=== PATIENT | female | born 1970 | race Caucasian/White ===

== ENCOUNTER 2020-09-17 14:58 | Outpatient (CLI) | payer OTHER, SELFPAY ==
--- NOTE | 2020-09-17 17:00 | WPDPFTINT ---
PFT Procedure Performed PFT Procedure Performed Plethysmography (Lung Vol) Diffusing Cap (DLCO) Flow Vol Loop Spirometry w/o Bronchodil PFT Interpretation This is a pulmonary function test with spirometry, plethysmography and diffusing capacity. The test was performed and results interpreted in accordance with the 2019 and 2005 ATS/ERS Task Force guidelines respectively using the Global Lung Function Initiative-2012 reference equations. Patient demonstrated good effort and cooperation. Reproducibility criteria were met. The quality of the spirometry maneuver was Grade A. Findings: Spirometry: There is decreased maximal expiratory airflow at low lung volumes with a concave expiratory flow tracing. The forced vital capacity is 2.71 L, 75% predicted. The FEV1 is 2.02 L, 70% predicted. The FEV1: FVC ratio 74%. Plethysmography: The total lung capacity is 4.27 L, 82% predicted. The functional residual capacity is 1.22 L, 42% predicted. The residual volume is 0.87 L, 48% predicted. Diffusing capacity: The absolute diffusion capacity is 11.3, 48% predicted. The diffusing capacity corrected for alveolar volume is 2.84, 62% predicted. Impression: There is a mild obstructive abnormality. There is a decreased functional residual capacity and residual volume with a normal total lung capacity. This is an abnormal but nonspecific lung volume pattern. The absolute diffusion capacity is moderately decreased and remains mildly decreased when corrected for alveolar volume. There are no prior studies for comparison
== END 2020-09-17 14:59 | disposition home or self-care (01) ==
LOC: ANHPFT 15:00
PROVIDERS: PCP Internal Medicine; Visit Provider Internal Medicine
DX: R06.00 Dyspnea, unspecified (principal); R94.2 Abnormal results of pulmonary function studies
CPT/HCPCS: 94375; 94726; 94729